=== PATIENT | female | born 1935 | race Caucasian/White ===

== ENCOUNTER 2020-08-08 15:09 | Emergency (ER) | payer OTHER, MEDICARE, BC, SELFPAY ==
--- NOTE | ~2020-08-08 | XR_ITS ---
XR chest 2V DATE: 08/08/2020 16:45 INDICATION: Right knee fracture. Injury. TECHNIQUE: AP and lateral views COMPARISON: None FINDINGS: Status post sternotomy and coronary artery bypass graft surgery. Cardiac megaly. Aortic jurgen cification. Bilateral hyperinflation of the lungs. No pulmonary infiltrate or consolidation, pleural effusion or pulmonary vascular congestion or pneumothorax is evident. Diffuse osteopenia. Dissection of the lateral aspect of the right clavicle. Surgical clips overlie the lower left cervical area and left axilla. The left breast shadow is absent or diminished compared to the right. IMPRESSION: Cardiomegaly Status post CABG Aortic atherosclerosis No active pulmonary disease Diffuse osteopenia Partial or complete left mastectomy and left axillary node dissection are suggested Postoperative change, left cervical area Reviewed, dictated and finalized at location A. IMPRESSION: Cardiomegaly Status post CABG Aortic atherosclerosis No active pulmonary disease Diffuse osteopenia Partial or complete left mastectomy and left axillary node dissection are sugge sted Postoperative change, left cervical area
--- NOTE | ~2020-08-08 | XR_ITS ---
XR hip RT 2V w AP pelvis DATE: 08/08/2020 16:47 INDICATION: Injury, pain TECHNIQUE: AP pelvis. AP and crosstable lateral view of right hip COMPARISON: None FINDINGS: Diffuse osteopenia. Prominent degenerative disc disease at L5-S1. Normal alignment at the pubic symphysis and sacroiliac joints. No pelvic fracture or bone destruction is evident. No fracture or dislocation is evident at either hip. Hip joint spaces are symmetric and relatively pr eserved. There is extensive calcification of the iliac and femoral arteries. IMPRESSION: No pelvic or right hip fracture is detected Reviewed, dictated and finalized at location A.
--- NOTE | ~2020-08-08 | XR_ITS ---
XR tibia fibula RT 2V DATE: 08/08/2020 16:46 INDICATION: Injury, pain TECHNIQUE: AP and lateral views COMPARISON: None FINDINGS: Diffuse osteopenia. Fracture of the proximal tibia is again noted, with intra-articular extension at the lateral tibial p atella, mild depression at the tibial articular surface, extension into the anterior tibial tuberosit y. The fibula is intact. Alignment is preserved at the knee and ankle joints. IMPRESSION: Intra-articular fracture of the proximal tibia with mild depression of the tibial articul ar surface Reviewed, dictated and finalized at location A. IMPRESSION: Intra-articular fracture of the proximal tibia with mild depression of the tibial articular surface
--- NOTE | ~2020-08-08 | XR_ITS ---
XR knee RT 3V DATE: 08/08/2020 16:45 INDICATION: Injury, pain TECHNIQUE: Crosstable lateral and 2 additional frontal views COMPARISON: None FINDINGS: There is suprapatellar effusion with fat/fluid level consistent with lipoma hemarthrosis se condary to intra-articular fracture of the proximal tibia. The tibial fracture involves the lateral a nd medial tibial plateau, with slight depression at the lateral tibial plateau articular surface.. Th e fracture extends into the anterior tibial tuberosity. Diffuse osteopenia. Surgical clips at medial aspect of knee. IMPRESSION: Intra-articular fracture of the proximal tibia with involvement of lateral and to a lesse r extent medial tibial plateau, extension to anterior tibial tuberosity, associated lipohemarthrosis Reviewed, dictated and finalized at location A. IMPRESSION: Intra-articular fracture of the proximal tibia with involvement of lateral and to a lesser extent medial tibial plateau, extension to anterior tib ial tuberosity, associated lipohemarthrosis
--- NOTE | ~2020-08-08 | XR_ITS ---
XR ankle RT min 3V DATE: 08/08/2020 16:44 INDICATION: Injury, right ankle and lower leg pain TECHNIQUE: 4 views of right ankle COMPARISON: None FINDINGS: Diffuse osteopenia. No fracture or dislocation of the ankle or disruption of the ankle mortise. No periosteal reaction or bone destruction. Plantar and posterior calcaneal enthesopathy. IMPRESSION: Osteopenia; no fracture or dislocation of the ankle Plantar and posterior calcaneal enthesopathy Reviewed, dictated and finalized at location A.
--- NOTE | ~2020-08-08 | XR_ITS ---
XR knee LT 3V DATE: 08/08/2020 16:46 INDICATION: Injury, pain TECHNIQUE: 3 views including crosstable lateral COMPARISON: None FINDINGS: Diffuse osteopenia. There is minimal periarticular spurring of the patella. No fracture or dislocation, periosteal reaction or bone destruction or joint effusion. Arterial calcifications are noted. 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
--- NOTE | ~2020-08-08 | XR_ITS ---
XR tibia fibula LT 2V DATE: 08/08/2020 16:45 INDICATION: Injury, pain TECHNIQUE: AP and crosstable lateral views of the lower leg COMPARISON: None FINDINGS: Diffuse osteopenia. No fracture, dislocation, periosteal reaction or bone destruction. IMPRESSION: Osteopenia Reviewed, dictated and finalized at location A. IMPRESSION: Osteopenia
[2020-08-08 15:11] VITALS: BP 166/66; PULSE 72; RESP 22; TEMP 36.7; O2SAT 95
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
[2020-08-08 16:08] LABS: Basophils Percent Auto 0.4 % (0.2-1.2); Eosinophils Absolute Auto 0.1 K/mm3 (0-0.3); Eosinophils Percent Auto 0.7 % (0-4.4); Hematocrit 33.2 % (37.0-47.0); Hemoglobin 10.8 g/dL (12.0-15.0); Immature Granulocyte Absolute 0.02 K/mm3 (0.00-0.031); Immature Granulocyte Percent A 0.3 % (0-0.5); Lymphocytes Absolute Auto 1.23 K/mm3 (0.9-3.2); Lymphocytes Percent Auto 16.3 % (18.3-44.2); Mean Corpuscular HGB Conc 32.5 g/dl (32-36); Mean Corpuscular Hemoglobin 29.4 pg (26-34); Mean Corpuscular Volume 90.5 fl (80-100); Mean Platelet Volume 10.2 fl (7.4-10.4); Monocytes Absolute Auto 0.6 K/mm3 (0.1-0.6); Monocytes Percent Auto 8.3 % (2.6-8.5); Neutrophils Absolute Auto 5.6 K/mm3 (1.3-6.7); Platelet Count Result 219 k/mm3 (150-375); Red Blood Count 3.67 M/mm3 (4.2-5.4); Red Cell Distribution Width 13.4 % (11.5-14.5); White Blood Count 7.6 K/mm3 (4.5-10.0)
[2020-08-08] MEDS: MORPHINE SULFATE (*CRX) 4 MG/ML INJ IV PUSH ×2 (16:09→18:44)
[2020-08-08] MEDS: ONDANSETRON INJ 4 MG/2 ML VIAL IV PUSH (16:10)
[2020-08-08] MEDS: SODIUM CHLORIDE 0.9% IV 500 ML 999 ML IV CONT (16:10)
[2020-08-08 16:19] LABS: Anion Gap 11 mmol/L (8-16); Blood Urea Nitrogen 26 mg/dL (7-17); Calcium 9.6 mg/dL (8.4-10.2); Carbon Dioxide 27 mmol/L (22-30); Chloride 101 mmol/L (98-107); Estimated CRCL calculation 35 ml/min; Estimated Glomerular Filt Rate 60; Glucose 234 mg/dL (65-105); Potassium 4.9 mmol/L (3.4-5.0); Sodium 139 mmol/L (137-145)
[2020-08-08 16:21] LABS: INR 2.8; Prothrombin Time 28.6 Seconds (11.1-14.7)
[2020-08-08 16:22] LABS: Partial Thromboplastin Time 34.3 SECONDS (22.3-36.8)
[2020-08-08 18:46] VITALS: BP 128/80; PULSE 80; RESP 18; TEMP 36.7; O2SAT 99
== END 2020-08-08 18:48 | disposition short-term general hospital (02) ==
PROVIDERS: Emergency Provider Emergency Medicine; PCP Family Medicine
DX: S82.141A Displaced bicondylar fracture of right tibia, initial encounter for closed fracture (principal); S82.101A Unspecified fracture of upper end of right tibia, initial encounter for closed fracture; V43.52XA Car driver injured in collision with other type car in traffic accident, initial encounter; Z95.1 Presence of aortocoronary bypass graft; Z85.3 Personal history of malignant neoplasm of breast; E89.0 Postprocedural hypothyroidism; E78.5 Hyperlipidemia, unspecified; Z79.01 Long term (current) use of anticoagulants
CPT/HCPCS: 36415; 71046; 73502; 73562; 73590; 73610; 80048; 85025; 85610; 85730; 96374; 96375; 96376; 99285; J2270; J2405; J7040